=== PATIENT | female | born 1990 | race African-American/Black ===

== ENCOUNTER → 2020-01-12 | Outpatient (CLI) | payer OTHER ==
[~2020-01-12] MED LIST: MULT-245 PO
[2020-01-12 11:59] LABS: BASO % 0 % (0-3); EOS # 0.1 x10^3/uL (0.0-0.7); EOS % 1 % (0-3); HEMATOCRIT 35.2 % (36.0-47.0); HEMOGLOBIN 12.1 g/dL (12.0-15.5); LYMPH # 2.1 x10^3/uL (1.0-4.8); LYMPH % 20 % (24-48); MEAN CORPUSCULAR HEMOGLOBIN 31 pg (25-35); MEAN CORPUSCULAR HGB CONC 34 g/dL (31-37); MEAN CORPUSCULAR VOLUME 90 fL (79-100); MONO # 0.6 x10^3/uL (0.0-1.1); MONO % 6 % (0-9); NEUT # 7.9 x10^3/uL (1.8-7.7); NEUT % 74 % (31-73); PLATELET COUNT 199 x10^3/uL (140-400); RED BLOOD COUNT 3.92 x10^6/uL (3.50-5.40); RED CELL DISTRIBUTION WIDTH 13.3 % (11.5-14.5); WHITE BLOOD COUNT 10.7 x10^3/uL (4.0-11.0)
== END | disposition home or self-care (01) ==
LOC: LAB 10:24
PROVIDERS: ATTEND Obstetrics & Gynecology
DX: O09.90 Supervision of high risk pregnancy, unspecified, unspecified trimester (principal); Z3A.00 Weeks of gestation of pregnancy not specified
CPT/HCPCS: 36415; 82950; 85025; 86850; 86900; 86901

== ENCOUNTER → 2020-01-16 | Outpatient (CLI) | payer OTHER ==
[2020-01-16 12:04] VITALS: BP 102/62
== END | disposition home or self-care (01) ==
LOC: OPS 11:06
PROVIDERS: ATTEND Obstetrics & Gynecology
DX: O26.899 Other specified pregnancy related conditions, unspecified trimester (principal); O09.90 Supervision of high risk pregnancy, unspecified, unspecified trimester; Z3A.00 Weeks of gestation of pregnancy not specified; Z67.41 Type O blood, Rh negative
CPT/HCPCS: 36415; 86850; 86900; 86901; 96372; J2791

== ENCOUNTER 2020-02-27 15:11 | Observation (INO) | payer OTHER ==
[2020-01-16 12:04] VITALS: BP 102/62
[2020-02-27 18:26] LABS: BILIRUBIN,URINE NEGATIVE (NEG); CLARITY,URINE CLEAR; COLOR,URINE YELLOW; NITRITE,URINE NEGATIVE (NEG); PROTEIN,URINE NEGATIVE (NEG-TRACE)
[2020-02-27 18:29] LABS: BACTERIA,URINE MODERATE /HPF (0-FEW); SQUAMOUS EPITHELIAL CELL,UR MOD /LPF
[2020-02-27 18:31] LABS: RBC,URINE 0 /HPF (0-2); WBC,URINE 20-40 /HPF (0-4)
== END 2020-02-27 17:45 | disposition home or self-care (01) ==
LOC: 3 SO LND 15:11
PROVIDERS: ADMIT Obstetrics & Gynecology; ATTEND Obstetrics & Gynecology
DX: O60.03 Preterm labor without delivery, third trimester (principal); O62.9 Abnormality of forces of labor, unspecified; Z3A.35 35 weeks gestation of pregnancy; Z79.899 Other long term (current) drug therapy
CPT/HCPCS: 81001; 87086; G0378; G0379

== ENCOUNTER 2020-03-06 07:09 | Inpatient (IN) | payer OTHER ==
[~2020-03-06] VITALS: Ht 154.9 cm; Wt 81.6 kg
[2020-03-06] MEDS ORDERED: IV RINGERS,LACTATED 1000ML 1,000 ML IV PRN (07:30)
[2020-03-06 07:55] LABS: AMNIO PT POSITIVE
[2020-03-06 07:59] LABS: BILIRUBIN,URINE NEGATIVE (NEG); CLARITY,URINE CLEAR; COLOR,URINE YELLOW; NITRITE,URINE NEGATIVE (NEG); PH,URINE 6.5 (<5.0-8.0); PROTEIN,URINE NEGATIVE (NEG-TRACE)
[2020-03-06 08:00] LABS: BACTERIA,URINE FEW /HPF (0-FEW); RBC,URINE OCC /HPF (0-2); SQUAMOUS EPITHELIAL CELL,UR MANY /LPF
[2020-03-06] MEDS ORDERED: ONDANSETRON PF 4 MG/2 ML VIAL. IVP PRN ×2 (08:15→13:45)
[2020-03-06] MEDS ORDERED: OXYTOCIN 30 UNIT/500 ML PREMIX 500 ML IV PRN ×3 (08:15→21:15)
[2020-03-06] MEDS ORDERED: 0.9 % SODIUM CHLORIDE 10 ML DISP.SYRIN. IV PRN ×2 (08:15→21:15)
[2020-03-06] MEDS ORDERED: BUTORPHANOL 2 MG/ML VIAL. IVP PRN ×2 (08:15)
[2020-03-06] MEDS ORDERED: fentaNYL PF VIAL 100 MCG/2 ML VIAL IVP PRN ×2 (08:15)
[2020-03-06] MEDS ORDERED: TERBUTALINE 1 MG/ML VIAL. SQ PRN (08:15)
[2020-03-06] MEDS ORDERED: PENICILLIN G K 5,000,000 UNIT in IV DEXTROSE 5% 100ML 100 ML IV ONE (08:15)
[2020-03-06] MEDS ORDERED: MAG HYDROX/ALUMINUM HYD/SIMETH 30 ML ORAL.SUSP PO PRN ×2 (08:15→21:15)
[2020-03-06] MEDS ORDERED: LIDOCAINE 1% PF 30 ML VIAL. INJ PRN (08:15)
[2020-03-06 08:33] LABS: BASO % 0 % (0-3); EOS # 0.1 x10^3/uL (0.0-0.7); EOS % 1 % (0-3); HEMOGLOBIN 11.1 g/dL (12.0-15.5); LYMPH # 1.9 x10^3/uL (1.0-4.8); LYMPH % 21 % (24-48); MEAN CORPUSCULAR HEMOGLOBIN 30 pg (25-35); MEAN CORPUSCULAR HGB CONC 34 g/dL (31-37); MEAN CORPUSCULAR VOLUME 89 fL (79-100); MONO # 0.5 x10^3/uL (0.0-1.1); MONO % 6 % (0-9); NEUT # 6.7 x10^3/uL (1.8-7.7); NEUT % 72 % (31-73); PLATELET COUNT 161 x10^3/uL (140-400); RED BLOOD COUNT 3.72 x10^6/uL (3.50-5.40); RED CELL DISTRIBUTION WIDTH 12.5 % (11.5-14.5); WHITE BLOOD COUNT 9.3 x10^3/uL (4.0-11.0)
[2020-03-06] MEDS: IV RINGERS,LACTATED 1000ML 1,000 ML IV SCH ×3 (08:35→14:37)
[2020-03-06 08:58] VITALS: BP 109/56
[2020-03-06] MEDS ORDERED: BETAMET ACET&NA PHOS 30 MG/5 ML VIAL. IM STA (11:21)
[2020-03-06] MEDS: PENICILLIN G K 2,500,000 UNIT in IV DEXTROSE 5% 50 ML IV SCH ×3 (12:19→21:00)
--- NOTE | 2020-03-06 12:47 | PDOC1 ---
OB - History Hx of Present Care: Good Care Ultrasounds: Normal mid trimester US Obstetrical Complications: None Medical Complications: None Past Family/Social History * Past Medical, Surgical, Family and Obstetric Histories reviewed from chart. Rubella: Immune RPR/VDRL: Negative GBS Status: Unknown HBsAG: Negative OB - Chief Complaint & HPI Date of Admission: Date of Admission: March 06, 2020 at 08:15 Chief Complaint/History : 5 Para: 4 EGA: 35 Reason for admission: active labor, rupture of membranes Admission Nurse Assessment Rev: Yes OB - Admission Exam Physical Exam Vitals: VS - Last 72 Hours, by Label Date Time Temp Pulse Resp B/P (MAP) Pulse Ox O2 Delivery O2 Flow Rate FiO2 03/06/20 08:58 98.5 68 16 109/56 (73) 99 Room Air 98.5 HEENT: Normal Heart: Regular Rate Lungs: Clear Abdomen: Gravid, Non tender, Soft Extremities: Edema Reflexes: Normal Cervical Dilatation: 2cm Effacement: 50% Station: -3 Membranes: Ruptured Amniotic Fluid: Clear Accelerations: Accelerations Present Decelerations: Early decelerations Contractions on Admission: >10 Minutes Apart Intensity: Mild Text A: 35 wks IUP PPROM GBS unknown P: Admit labor management. Start Pen G prophylaxis. Start Pitocin augmentation. Covid testing. LIA LINDQUIST Jr, MD March 06, 2020 12:47
[2020-03-06] MEDS ORDERED: IV RINGERS,LACTATED 1000ML 1,000 ML IV SCH (13:43)
[2020-03-06] MEDS ORDERED: NALOXONE 0.4 MG/ML VIAL. IV PRN (13:45)
[2020-03-06] MEDS ORDERED: L&D EPIDURAL SYRINGE 50 ML EPID PRN (13:45)
[2020-03-06] MEDS ORDERED: ROPIVacaine 0.2% PF 10 ML VIAL. EPID PRN (13:45)
[2020-03-06] MEDS ORDERED: L&D EPIDURAL SYRINGE 50 ML ONE (13:47)
[2020-03-06] MEDS ORDERED: ROPIVacaine 0.2% PF 10 ML VIAL. ONE (14:00)
[2020-03-06] MEDS ORDERED: L&D EPIDURAL 50 ML SYRINGE. ONE (14:00)
--- NOTE | 2020-03-06 21:03 | PDOC ---
VAGINAL DELIVERY DATE DATE: 03/06/20 TIME: 21:02 : 4 Para: 3 EGA: 35 VAGINAL DELIVERY: VTX VACCUM ASSISTED: No PLACENTA: Spontaneous 8/9 SEX: Female WEIGHT Weight [ pending ] Nuchal Cord: No Amniotic Fluid: Clear PAIN: Epidural EPISIOTOMY: No EXTENSION: No EBL 300 ml COMPLICATIONS none CONDITION pt. stable Signs of Intrauterine Infectio: None Shoulder Dystocia: No LIA LINDQUIST Jr, MD March 06, 2020 21:03
[2020-03-06] MEDS ORDERED: SIMETHICONE 80 MG TAB.CHEW PO PRN (21:15)
[2020-03-06] MEDS ORDERED: TDaP (Adacel) per PROTOCOL. MC PRN (21:15)
[2020-03-06] MEDS ORDERED: PHENYLEPH/MINERAL OIL/PETROLAT RECTAL OINTMENT TUBE. RC PRN (21:15)
[2020-03-06] MEDS ORDERED: IBUPROFEN 400 MG TABLET. PO PRN (21:15)
[2020-03-06] MEDS ORDERED: MMR per PROTOCOL. MC PRN (21:15)
[2020-03-06] MEDS ORDERED: HYDROCORTISONE 1% TOPICAL OINTMENT 30GM TUBE. TP PRN (21:15)
[2020-03-06] MEDS ORDERED: ACETAMINOPHEN 325 MG TABLET. PO PRN (21:15)
[2020-03-06] MEDS ORDERED: BENZOCAINE 20% TOPICAL AEROSOL SPRAY 57GM CAN. TP PRN (21:15)
[2020-03-06] MEDS ORDERED: diphenhydrAMINE HCL 25 MG CAPSULE PO PRN (21:15)
[2020-03-06] MEDS ORDERED: MAGNESIUM HYDROXIDE 2,400 MG/30 ML ORAL.SUSP. PO PRN (21:15)
[2020-03-06] MEDS ORDERED: ZOLPIDEM 5 MG TABLET. PO PRN (21:15)
[2020-03-06 23:05] VITALS: BP 111/54
[2020-03-06] MEDS: IBUPROFEN 400 MG TABLET. PO PRN (23:45)
[2020-03-07] VITALS (8 sets, daily range): BP systolic 96–120; BP diastolic 56–70
[2020-03-07] MEDS: PENICILLIN G K 2,500,000 UNIT in IV DEXTROSE 5% 50 ML IV SCH ×6 (01:00→21:00)
[2020-03-07 04:36] LABS: BASO # 0.1 x10^3/uL (0.0-0.2); BASO % 0 % (0-3); EOS % 0 % (0-3); HEMOGLOBIN 11.8 g/dL (12.0-15.5); LYMPH # 1.7 x10^3/uL (1.0-4.8); LYMPH % 8 % (24-48); MEAN CORPUSCULAR HEMOGLOBIN 30 pg (25-35); MEAN CORPUSCULAR HGB CONC 34 g/dL (31-37); MEAN CORPUSCULAR VOLUME 88 fL (79-100); MONO # 1.2 x10^3/uL (0.0-1.1); MONO % 6 % (0-9); NEUT # 18.7 x10^3/uL (1.8-7.7); NEUT % 87 % (31-73); PLATELET COUNT 193 x10^3/uL (140-400); RED BLOOD COUNT 3.99 x10^6/uL (3.50-5.40); RED CELL DISTRIBUTION WIDTH 12.9 % (11.5-14.5); WHITE BLOOD COUNT 21.6 x10^3/uL (4.0-11.0)
[2020-03-07 05:02] LABS: % BANDS 8 % (0-9); % LYMPHS 9 % (24-48); % MONOS 3 % (0-10); % SEGS 80 % (35-66); PLT ESTIMATE ADEQUATE (ADEQUATE)
[2020-03-07] MEDS: IBUPROFEN 400 MG TABLET. PO PRN ×2 (06:43→13:40)
[2020-03-07] MEDS: FERROUS SULFATE 325 MG TABLET. PO SCH ×2 (08:00→17:00)
--- NOTE | 2020-03-07 08:02 | PDOC ---
OB Progress Note Date of Service 03/07/20 Time of Evaluation 0800 Notes Pt. feeling well. No complaints. Lab Laboratory Tests Test 03/06/20 07:29 03/06/20 07:40 03/06/20 08:14 03/07/20 03:50 Urine Collection Type Unknown Urine Color Yellow Urine Clarity Clear Urine pH 6.5 (<5.0-8.0) Urine Specific Dexter 1.020 (1.000-1.030) Urine Protein Negative mg/dL (NEG-TRACE) Urine Glucose (UA) Negative mg/dL (NEG) Urine Ketones (Stick) Negative mg/dL (NEG) Urine Blood Negative (NEG) Urine Nitrite Negative (NEG) Urine Bilirubin Negative (NEG) Urine Urobilinogen Dipstick 1.0 mg/dL (0.2 mg/dL) Urine Leukocyte Esterase Small (NEG) Urine RBC Occ /HPF (0-2) Urine WBC 11-20 /HPF (0-4) Urine Squamous Epithelial Cells Many /LPF Urine Bacteria Few /HPF (0-FEW) Urine Mucus Mod /LPF Amniotic Fluid Swab Test Positive White Blood Count 9.3 x10^3/uL (4.0-11.0) 21.6 x10^3/uL (4.0-11.0) Red Blood Count 3.72 x10^6/uL (3.50-5.40) 3.99 x10^6/uL (3.50-5.40) Hemoglobin 11.1 g/dL (12.0-15.5) 11.8 g/dL (12.0-15.5) Hematocrit 33.0 % (36.0-47.0) 35.0 % (36.0-47.0) Mean Corpuscular Volume 89 fL (79-100) 88 fL (79-100) Mean Corpuscular Hemoglobin 30 pg (25-35) 30 pg (25-35) Mean Corpuscular Hemoglobin Concent 34 g/dL (31-37) 34 g/dL (31-37) Red Cell Distribution Width 12.5 % (11.5-14.5) 12.9 % (11.5-14.5) Platelet Count 161 x10^3/uL (140-400) 193 x10^3/uL (140-400) Neutrophils (%) (Auto) 72 % (31-73) 87 % (31-73) Lymphocytes (%) (Auto) 21 % (24-48) 8 % (24-48) Monocytes (%) (Auto) 6 % (0-9) 6 % (0-9) Eosinophils (%) (Auto) 1 % (0-3) 0 % (0-3) Basophils (%) (Auto) 0 % (0-3) 0 % (0-3) Neutrophils # (Auto) 6.7 x10^3/uL (1.8-7.7) 18.7 x10^3/uL (1.8-7.7) Lymphocytes # (Auto) 1.9 x10^3/uL (1.0-4.8) 1.7 x10^3/uL (1.0-4.8) Monocytes # (Auto) 0.5 x10^3/uL (0.0-1.1) 1.2 x10^3/uL (0.0-1.1) Eosinophils # (Auto) 0.1 x10^3/uL (0.0-0.7) 0.0 x10^3/uL (0.0-0.7) Basophils # (Auto) 0.0 x10^3/uL (0.0-0.2) 0.1 x10^3/uL (0.0-0.2) Treponema pallidum Antibody Nonreactive (Nonreactive) Segmented Neutrophils % 80 % (35-66) Band Neutrophils % 8 % (0-9) Lymphocytes % 9 % (24-48) Monocytes % 3 % (0-10) Platelet Estimate Adequate (ADEQUATE) Laboratory Tests Test 03/06/20 08:14 03/07/20 03:50 White Blood Count 9.3 x10^3/uL (4.0-11.0) 21.6 x10^3/uL (4.0-11.0) Red Blood Count 3.72 x10^6/uL (3.50-5.40) 3.99 x10^6/uL (3.50-5.40) Hemoglobin 11.1 g/dL (12.0-15.5) 11.8 g/dL (12.0-15.5) Hematocrit 33.0 % (36.0-47.0) 35.0 % (36.0-47.0) Mean Corpuscular Volume 89 fL (79-100) 88 fL (79-100) Mean Corpuscular Hemoglobin 30 pg (25-35) 30 pg (25-35) Mean Corpuscular Hemoglobin Concent 34 g/dL (31-37) 34 g/dL (31-37) Red Cell Distribution Width 12.5 % (11.5-14.5) 12.9 % (11.5-14.5) Platelet Count 161 x10^3/uL (140-400) 193 x10^3/uL (140-400) Neutrophils (%) (Auto) 72 % (31-73) 87 % (31-73) Lymphocytes (%) (Auto) 21 % (24-48) 8 % (24-48) Monocytes (%) (Auto) 6 % (0-9) 6 % (0-9) Eosinophils (%) (Auto) 1 % (0-3) 0 % (0-3) Basophils (%) (Auto) 0 % (0-3) 0 % (0-3) Neutrophils # (Auto) 6.7 x10^3/uL (1.8-7.7) 18.7 x10^3/uL (1.8-7.7) Lymphocytes # (Auto) 1.9 x10^3/uL (1.0-4.8) 1.7 x10^3/uL (1.0-4.8) Monocytes # (Auto) 0.5 x10^3/uL (0.0-1.1) 1.2 x10^3/uL (0.0-1.1) Eosinophils # (Auto) 0.1 x10^3/uL (0.0-0.7) 0.0 x10^3/uL (0.0-0.7) Basophils # (Auto) 0.0 x10^3/uL (0.0-0.2) 0.1 x10^3/uL (0.0-0.2) Treponema pallidum Antibody Nonreactive (Nonreactive) Segmented Neutrophils % 80 % (35-66) Band Neutrophils % 8 % (0-9) Lymphocytes % 9 % (24-48) Monocytes % 3 % (0-10) Platelet Estimate Adequate (ADEQUATE) Medications Current Medications Ringer's Solution 1,000 ml @ 125 mls/hr Q8H PRN IV PER PROTOCOL; Start 03/06/20 at 07:30 Sodium Chloride (Normal Saline Flush) 3 ml QSHIFT PRN IV AFTER MEDS AND BLOOD DRAWS; Start 03/06/20 at 08:15 Ringer's Solution 1,000 ml @ 125 mls/hr Q8H IV Last administered on 03/06/20at 14:37; Start 03/06/20 at 08:10 Butorphanol Tartrate (Stadol) 1 mg PRN Q1HR PRN IVP mild to moderate labor pain; Start 03/06/20 at 08:15 Butorphanol Tartrate (Stadol) 2 mg PRN Q1HR PRN IVP Severe labor pain; Start 03/06/20 at 08:15 Fentanyl Citrate (Fentanyl 2ml Vial) 50 mcg PRN Q30MIN PRN IVP Mild to moderate pain; Start 03/06/20 at 08:15 Fentanyl Citrate (Fentanyl 2ml Vial) 100 mcg PRN Q30MIN PRN IVP Severe pain; Start 03/06/20 at 08:15 Acetaminophen (Tylenol) 650 mg PRN Q6HRS PRN PO MILD PAIN / TEMP > 100.3'F; Start 03/06/20 at 08:15 Ondansetron HCl (Zofran) 4 mg PRN Q4HRS PRN IVP NAUSEA/VOMITING Last administered on 03/06/20at 16:38; Start 03/06/20 at 08:15 Al Hydroxide/Mg Hydroxide (Mylanta Plus Xs) 30 ml PRN Q4HRS PRN PO HEARTBURN / GAS; Start 03/06/20 at 08:15 Terbutaline Sulfate (Brethine) 0.25 mg 1X PRN PRN SQ SEE COMMENTS; Start 03/06/20 at 08:15; Stop 03/07/20 at 08:14 Lidocaine HCl (Xylocaine 1% Pf 30ml Vial) 30 ml 1X PRN PRN INJ SEE COMMENTS; Start 03/06/20 at 08:15; Stop 03/08/20 at 08:14 Oxytocin/Sodium Chloride 500 ml @ 0 mls/hr CONT PRN IV SEE I/O RECORD Last administered on 03/06/20at 08:36; Start 03/06/20 at 08:15 Oxytocin/Sodium Chloride 500 ml @ 0 mls/hr CONT PRN PRN IV Post delivery bleeding; Start 03/06/20 at 08:15 Penicillin G Potassium [id number] unit/Dextrose 100 ml @ 100 mls/hr 1X ONCE IV Last administered on 03/06/20at 08:34; Start 03/06/20 at 08:15; Stop 03/06/20 at 09:14; Status DC Penicillin G Potassium [id number] unit/Dextrose 50 ml @ 100 mls/hr Q4H IV Last administered on 03/06/20at 16:26; Start 03/06/20 at 13:00 Ibuprofen (Motrin) 800 mg PRN Q6HRS PRN PO INFLAMMATION Last administered on 03/07/20at 06:43; Start 03/06/20 at 08:15 Betamethasone Sodium Phosphate (Celestone Soluspan) 12 mg 1X STAT IM Last administered on 03/06/20at 11:40; Start 03/06/20 at 11:21; Stop 03/06/20 at 11:26; Status DC Ringer's Solution 1,000 ml @ 1,000 mls/hr Q1H IV ; Start 03/06/20 at 13:43; Stop 03/06/20 at 14:42; Status DC Naloxone HCl (Narcan) 0.04 mg PRN Q1MIN PRN IV SEE COMMENTS; Start 03/06/20 at 13:45 Fentanyl Citrate 50 ml @ 14 mls/hr CONT PRN EPID PAIN Last administered on 03/06/20at 18:02; Start 03/06/20 at 13:45 Ondansetron HCl (Zofran) 4 mg PRN Q6HRS PRN IVP NAUSEA/VOMITING; Start 03/06/20 at 13:45 Ropivacaine (Naropin 0.2%) 20 ml 1X PRN PRN EPID PER ANESTHESIA; Start 03/06/20 at 13:45; Stop 03/07/20 at 13:44 Fentanyl Citrate 50 ml @ As Directed STK-MED ONCE .ROUTE ; Start 03/06/20 at 13: 47; Stop 03/06/20 at 13:47; Status DC Sodium Chloride (Normal Saline Flush) 10 ml QSHIFT PRN IV AFTER MEDS AND BLOOD DRAWS; Start 03/06/20 at 21:15 Oxytocin/Sodium Chloride 500 ml @ 62.5 mls/hr CONT PRN IV SEE I/O RECORD; Start 03/06/20 at 21:15; Stop 03/07/20 at 05:14; Status DC Acetaminophen (Tylenol) 650 mg PRN Q6HRS PRN PO MILD PAIN / TEMP > 100.3'F; Start 03/06/20 at 21:15 Ibuprofen (Motrin) 800 mg PRN Q8HRS PRN PO INFLAMMATION/PAIN PREVENTION; Start 03/06/20 at 21:15 Docusate Sodium (Colace) 100 mg PRN BID PRN PO HARD STOOL; Start 03/06/20 at 21:15 Magnesium Hydroxide (Milk Of Magnesia) 2,400 mg PRN DAILY PRN PO CONSTIPATION; Start 03/06/20 at 21:15 Al Hydroxide/Mg Hydroxide (Mylanta Plus Xs) 30 ml PRN Q4HRS PRN PO HEARTBURN / GAS; Start 03/06/20 at 21:15 Simethicone (Gas-X) 80 mg PRN AFTMEALHC PRN PO GAS / BLOATING; Start 03/06/20 at 21:15 Diphenhydramine HCl (Benadryl) 25 mg PRN Q6HRS PRN PO ITCHING; Start 03/06/20 at 21:15 Benzocaine (Americaine) 1 spray PRN QID PRN TP TOPICAL PAIN Last administered on 03/07/20at 06:42; Start 03/06/20 at 21:15 Phenyleph/Shark Oil/Min Oil/Petrol (Preparation H) 1 carroll PRN QID PRN RC RECTAL PAIN; Start 03/06/20 at 21:15 Hydrocortisone (Cortaid) 1 carroll PRN QID PRN TP PERINEAL PAIN; Start 03/06/20 at 21:15 Ferrous Sulfate (Feosol) 325 mg BIDWMEALS PO ; Start 03/07/20 at 08:00 Zolpidem Tartrate (Ambien) 5 mg PRN QHS PRN PO INSOMNIA, MAY REPEAT X1; Start 03/06/20 at 21:15 Info (Do NOT chart on this placeholder) 1 ea 1X PRN PRN MC SEE COMMENTS; Start 03/06/20 at 21:15 Info (Do NOT chart on this placeholder) 1 ea 1X PRN PRN MC SEE COMMENTS; Start 03/06/20 at 21:15 Multivitamins (Thera M Plus) 1 tab DAILY PO ; Start 03/07/20 at 09:00 Active Scripts Active Reported Multi Vitamin Daily (Multivitamin) 1 Each Tablet 1 Each PO DAILY Exam Abd: soft, non tender, fundus firm Assessment PPD#1 s/p Plan of Care: Continue current Tx, Mgmt LIA LINDQUIST Jr, MD March 07, 2020 08:02
[2020-03-07] MEDS: IV RINGERS,LACTATED 1000ML 1,000 ML IV SCH ×2 (08:10→16:10)
[2020-03-07] MEDS: DOCUSATE SODIUM 100 MG CAPSULE. PO PRN (09:24)
[2020-03-07] MEDS: ACETAMINOPHEN 325 MG TABLET. PO PRN (09:24)
[2020-03-07] MEDS: MULTIVITAMIN with MINERAL TABLET. PO SCH (09:24)
[2020-03-08] MEDS: IV RINGERS,LACTATED 1000ML 1,000 ML IV SCH ×3 (00:10→16:10)
[2020-03-08] MEDS: PENICILLIN G K 2,500,000 UNIT in IV DEXTROSE 5% 50 ML IV SCH ×6 (01:00→21:00)
[2020-03-08 02:10] VITALS: BP 114/69
[2020-03-08 06:11] VITALS: BP 113/65
[2020-03-08] MEDS: IBUPROFEN 400 MG TABLET. PO PRN ×2 (06:15→16:49)
[2020-03-08] MEDS: FERROUS SULFATE 325 MG TABLET. PO SCH ×2 (08:00→17:00)
--- NOTE | 2020-03-08 08:33 | PDOC3 ---
OB DISCHARGE SUMMARY DATE OF ADMISSION: 03/06/20 DATE OF DISCHARGE: 03/08/20 REASON FOR ADMISSION: labor, PPROM INTRAPARTUM PROCEDURES: Spontanous Vag Deliv DISCHARGE DIAGNOSIS: Others ( delivery) DISCHARGE INFORMATION: Activity (ad cuong), Diet (regular), Instructions (pelvic rest x 6 wks) HOSPITAL COURSE gestation delivered without difficulty. LIA LINDQUIST Jr, MD March 08, 2020 08:33
[2020-03-08] MEDS ORDERED: IBUP-1027 PO (08:37)
--- NOTE | 2020-03-08 08:37 | DISCH ---
DISCHARGE INSTRUCTIONS Condition on Discharge Condition on Discharge: Stable Activity After Discharge Activity Instructions for Disc: Activity as tolerated Lifting Instructions after Dis: No heavy lifting Driving Instructions after Dis: Do not drive today Diet after Discharge Diet after Discharge: Regular Contacting the [facility] after DC Call your doctor for: Concerns you may have Follow-Up Follow up with: Dr. Pace in 6 wks LIA PACE Jr, MD March 08, 2020 08:37
[2020-03-08] MEDS: DOCUSATE SODIUM 100 MG CAPSULE. PO PRN ×2 (09:51→21:45)
[2020-03-08] MEDS: MULTIVITAMIN with MINERAL TABLET. PO SCH (09:51)
[2020-03-08 14:20] VITALS: BP 111/69
[2020-03-08 21:45] VITALS: BP 108/67
[2020-03-08] MEDS: ACETAMINOPHEN 325 MG TABLET. PO PRN (21:45)
[2020-03-09] MEDS: IBUPROFEN 400 MG TABLET. PO PRN (05:25)
[2020-03-09 05:33] VITALS: BP 118/73
[2020-03-09] MEDS: DOCUSATE SODIUM 100 MG CAPSULE. PO PRN (08:39)
[2020-03-09] MEDS: MULTIVITAMIN with MINERAL TABLET. PO SCH (08:39)
[2020-03-09 13:30] VITALS: BP 116/66
--- NOTE | 2020-03-09 13:45 | NUR ---
Discharge and follow up instructions reviewed and given to pt along with a Rx for ibuprofen. Pt denied any questions or complaints at time of discharge. Pt ambulated out of hospital with Manisha RN and Corinna BURDICK.
== END 2020-03-09 13:45 | disposition home or self-care (01) | DRG 805 ==
LOC: 3 SO LND 07:09 → OBSVTOIN 08:15 → 3 SO LND 23:05
PROVIDERS: ADMIT Obstetrics & Gynecology; ATTEND Obstetrics & Gynecology
PROC: 10E0XZZ Delivery of Products of Conception, External Approach (ICD-10-PCS; principal; 2020-03-06)
PROC: 3E0R3BZ Introduction of Anesthetic Agent into Spinal Canal, Percutaneous Approach (ICD-10-PCS; 2020-03-06)
PROC: 00HU33Z Insertion of Infusion Device into Spinal Canal, Percutaneous Approach (ICD-10-PCS; 2020-03-06)
PROC: 3E0334Z Introduction of Serum, Toxoid and Vaccine into Peripheral Vein, Percutaneous Approach (ICD-10-PCS; 2020-03-06)
DX: O42.913 Preterm premature rupture of membranes, unspecified as to length of time between rupture and onset of labor, third trimester (principal); O60.14X0 Preterm labor third trimester with preterm delivery third trimester, not applicable or unspecified; Z37.0 Single live birth; O76 Abnormality in fetal heart rate and rhythm complicating labor and delivery; Z20.828 Contact with and (suspected) exposure to other viral communicable diseases; Z3A.35 35 weeks gestation of pregnancy
CPT/HCPCS: 36415; 81001; 84112; 85007; 85025; 85461; 86592; 86850; 86900; 86901; 87086; 87635; G0379; J0702; J2405; J2540; J2590; J2791; J2795; J3010; J7060; J7120; G0378

== ENCOUNTER 2022-01-23 09:19 | Emergency (ER) | payer OTHER ==
[~2022-01-23] VITALS: Ht 154.9 cm; Wt 59.0 kg
[~2022-01-23 09:19] MED LIST changes: +IBUP-1027 PO
[2022-01-23 09:30] VITALS: BP 144/79
[2022-01-23] MEDS ORDERED: IBUPROFEN 400 MG TABLET. PO ONE (09:45)
--- NOTE | 2022-01-23 09:50 | PHYS DOC ---
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 She did not realize how some boxes were loaded on the dock and was using a metal david. She stated when she went to pull back with a metal david the david came back and hit her right in the nose. She states that she got dizzy and began having a nosebleed through the left nare only. She states she cannot breathe through her nose. She states she did not pass out and there is no nausea or vomiting. She has nasal pain but no severe headache. She states her throbbing nonradiating pain is 10 out of 10 she did not take any pain medication at work. She did drive herself here today. No past medical history. Denies nausea, vomiting, neck pain, falling, syncope, dizziness at this time, vision change, vision loss, numbness or tingling, focal weakness. Patient is not on any type of blood thinner. Review of Systems: Review of Systems: Constitutional: Denies fever or chills. [] Eyes: Denies change in visual acuity. [] HENT: Denies nasal congestion or sore throat. + Nasal pain . + Nosebleed [] Respiratory: Denies cough or shortness of breath. [] Cardiovascular: Denies chest pain or + nasal edema. [] GI: Denies abdominal pain, nausea, vomiting, bloody stools or diarrhea. [] : Denies dysuria. [] Musculoskeletal: Denies back pain or joint pain. [] Integument: Denies rash. [] Neurologic: Denies headache, focal weakness or sensory changes. [] Endocrine: Denies polyuria or polydipsia. [] Lymphatic: Denies swollen glands. [] Psychiatric: Denies depression or anxiety. [] Heart Score: C/O Chest Pain: No Current Medications: Current Medications Medications (Trade) Dose Ordered Sig/Falguni Start Time Stop Time Status Last Admin Dose Admin Ibuprofen (Motrin) 800 mg 1X ONCE 01/23/22 09:45 01/23/22 09:46 Allergies: Allergies: Allergies Coded Allergies Type Severity Reaction Last Updated Verified aspirin Allergy Intermediate HIVES, SWELLING 01/23/22 Yes Physical Exam: PE: Constitutional: Well developed, well nourished, no acute distress, non-toxic appearance. [] HENT: Normocephalic, atraumatic, bilateral external ears normal, oropharynx moist, no oral exudates, nose normal. Swelling of the nose with a abrasion. No open laceration. No hematoma inside of nose. No nasal deformity. Nasal swelling with some bruising 2+ [] Eyes: PERRLA, EOMI, conjunctiva normal, no discharge. [] Neck: Normal range of motion, no tenderness, supple, no stridor. [] Cardiovascular:Heart rate regular rhythm, no murmur [] Lungs & Thorax: Bilateral breath sounds clear to auscultation [] Abdomen: Bowel sounds normal, soft, no tenderness, no masses, no pulsatile masses. [] Skin: Warm, dry, no erythema, no rash. [] Back: No tenderness, no CVA tenderness. [] Extremities: No tenderness, no cyanosis, no clubbing, ROM intact, no edema. [] Neurologic: Alert and oriented X 3, normal motor function, normal sensory function, no focal deficits noted. [] Psychologic: Affect normal, judgement normal, mood normal. [] Current Patient Data: Vital Signs: Vital Signs Date Time Temp Pulse Resp B/P (MAP) Pulse Ox O2 Delivery O2 Flow Rate FiO2 01/23/22 09:30 98.2 70 16 144/79 (100) 100 98.2 EKG: EKG: [] Radiology/Procedures: Radiology/Procedures: [] Impression: [facility] [address] [place], [place] [id number] IMAGING REPORT Signed PATIENT: NYDIA PEREZ ACCOUNT: [id number] : 1990 LOCATION: ER AGE: 31 SEX: F EXAM STATUS: PRE ER ORD. PHYSICIAN: JESSICA SOW APRN REASON: hit herself in face with a david at work causing dizziness, nose bleed, swe PROCEDURE: CT HEAD AND MAXILLOFACIAL WO EXAMINATION: CT HEAD AND MAXILLOFACIAL WO. INDICATION:31 years, Female, . COMPARISON: None. TECHNIQUE: Axial CT images of the head without contrast. These were viewed on brain and bone windows. Axial CT images of the face were obtained without contrast. Sagittal and coronal reconstruction was performed. Exposure: One or more of the following individualized dose reduction techniques were utilized for this examination: 1. Automated exposure control 2. Adjustment of the mA and/or kV according to patient size 3. Use of iterative reconstruction technique. CT HEAD FINDINGS: The brain parenchyma is normal in attenuation. No intra- or extra-axial mass or fluid collection. No acute hemorrhage. The ventricles are normal in size, shape, and morphology. The rodrigues-white matter junction is normal. The basilar cisterns are patent. The mastoid air cells are clear. No aggressive osseous lesion or fracture. CT FACE FINDINGS: Comminuted nondisplaced nasal bone fracture. There is mild asymmetric subcutaneous swelling/contusions involving the lower forehead, periorbital region and nose. Remaining bony structures of the face are without fracture or malalignment. The maxillary and ethmoid sinuses are clear. There is minimal mucosal thickening of the right sphenoid sinus. The orbits are normal. The globes are intact. The nasal septum is mostly midline. The ostiomeatal complexes are narrow but patent. The visualized cervical spine to the level of C5 is normally aligned. No acute fracture. Visualized prevertebral soft tissues are unremarkable. Impression: 1. No acute intracranial process. 2. Comminuted nondisplaced nasal bone fracture. Mild asymmetric subcutaneous swelling/contusions involving the lower forehead, periorbital region and nose Electronically signed by: Celine Godwin DO (01/23/2022 10:45 AM) [id number] DICTATED and SIGNED BY: CELINE GODWIN DO DATE: 01/23/22 1035 Course & Med Decision Making: Course & Med Decision Making Pertinent Labs and Imaging studies reviewed. (See chart for details) See HPI. Alert and oriented x4. Ambulatory steady gait. Speaks in full clear sentences. No nystagmus. PERRLA. Skin pink warm and dry. No focal bony spinal tenderness. She does have tenderness to the nasal bridge with some bruising to the upper nasal bridge area with a very small abrasion. There is dried blood up in the nares but there is no nasal hematoma. Patient is breathing out of her nose. Full range of motion of her neck. [] Dragon Disclaimer: Dragon Disclaimer: This electronic medical record was generated, in whole or in part, using a voice recognition dictation system. Departure Departure Impression: Primary Impression: Nasal bone fracture Qualified Codes: S02.2XXA - Fracture of nasal bones, initial encounter for closed fracture Disposition: HOME / SELF CARE / HOMELESS Condition: STABLE Referrals: NO PCP (PCP) AFIA MCFARLANE MD Patient Instructions: Nasal Fracture Additional Instructions: Follow-up with ears nose throat doctor. Remember to use saline nasal spray. Try not to blow your nose. Sleep with your head of bed elevated if possible. Take medication as prescribed and with food. Use ice. Also since this was a work related injury you may need to talk to work comp and see if they are okay with you seeing your own ears nose throat doctor or they may give you a doctor that they want to see. Scripts Sodium Chloride (SALINE NASAL SPRAY) 30 Ml Garner 1 SPRAY NS QID PRN for NASAL CONGESTION, #60 ML Prov: JESSICA SOW APRN 01/23/22 Ibuprofen (IBUPROFEN) 600 Mg Tablet 600 MG PO PRN Q6HRS PRN for INFLAMMATION, #30 TAB Prov: JESSICA SOW APRN 01/23/22 JESSICA SOW APRN Jan 23, 2022 09:50
--- NOTE | 2022-01-23 10:48 | RAD ---
EXAMINATION: CT HEAD AND MAXILLOFACIAL WO. INDICATION:31 years, Female, . COMPARISON: None. TECHNIQUE: Axial CT images of the head without contrast. These were viewed on brain and bone windows. Axial CT images of the face were obtained without contrast. Sagittal and coronal reconstruction was performed. Exposure: One or more of the following individualized dose reduction techniques were utili zed for this examination: 1. Automated exposure control 2. Adjustment of the mA and/or kV according to patient size 3. Use of iterative reconstruction technique. CT HEAD FINDINGS: The brain parenchyma is normal in attenuation. No intra- or extra-axial mass or fluid collection. No acute hemorrhage. The ventricles are normal in size, shape, and morphology. The rodrigues-white matter oksana ction is normal. The basilar cisterns are patent. The mastoid air cells are clear. No aggressive osseous lesion or fracture. CT FACE FINDINGS: Comminuted nondisplaced nasal bone fracture. There is mild asymmetric subcutaneous swelling/contusion s involving the lower forehead, periorbital region and nose. Remaining bony structures of the face ar e without fracture or malalignment. The maxillary and ethmoid sinuses are clear. There is minimal mucosal thickening of the right sphenoi d sinus. The orbits are normal. The globes are intact. The nasal septum is mostly midline. The ostiom eatal complexes are narrow but patent. The visualized cervical spine to the level of C5 is normally aligned. No acute fracture. Visualized p revertebral soft tissues are unremarkable. Impression: 1. No acute intracranial process. 2. Comminuted nondisplaced nasal bone fracture. Mild asymmetric subcutaneous swelling/contusions invo lving the lower forehead, periorbital region and nose Electronically signed by: Layo Godwin DO (01/23/2022 10:45 AM) [id number]
[2022-01-23] MEDS ORDERED: IBUP-1007 PO (10:56)
[2022-01-23] MEDS ORDERED: SODI30SP NS (10:56)
== END 2022-01-23 11:05 | disposition home or self-care (01) ==
LOC: ER 09:19
DX: S02.2XXA Fracture of nasal bones, initial encounter for closed fracture (principal); R04.0 Epistaxis; R42 Dizziness and giddiness; Z88.6 Allergy status to analgesic agent; W22.8XXA Striking against or struck by other objects, initial encounter; Y93.89 Activity, other specified; Y92.69 Other specified industrial and construction area as the place of occurrence of the external cause; Y99.0 Civilian activity done for income or pay
CPT/HCPCS: 70450; 70486; 81025; 99284-25